=== PATIENT | female | born 2000 | race African-American/Black ===

== ENCOUNTER 2023-02-02 09:25 | Emergency (ER) | payer SELFPAY ==
[~2023-02-02] VITALS: Ht 162.5 cm; Wt 65.7 kg
--- NOTE | 2023-02-02 09:37 | ED Respiratory ---
General Chief Complaint: Respiratory Problems Stated Complaint: ASTHMA History of Present Illness Date Seen by Provider: Feb 02, 2023 Time Seen by Provider: 09:37 Initial Comments 23-year-old female with a history of asthma. She presents because she had a mild asthma exacerbation last night and had to use her inhaler. Patient reports that they just moved to town and moved to an apartment that had cats and dogs and she is allergic to both of them. She is not having shortness of breath at this time no wheezing. She has not had to use her inhaler this morning. She has a rescue inhaler albuterol and Spiriva. Allergies and Home Medications Allergies Coded Allergies: acetaminophen (Verified Allergy, Unknown, 02/02/23) dextromethorphan (Verified Allergy, Unknown, 02/02/23) doxylamine (Verified Allergy, Unknown, 02/02/23) pseudoephedrine (Verified Allergy, Unknown, 02/02/23) Patient Home Medication List Home Medication List Reviewed: Yes Review of Systems Review of Systems Constitutional: no symptoms reported EENTM: nose congestion Respiratory: see HPI Cardiovascular: no symptoms reported Gastrointestinal: no symptoms reported Genitourinary: no symptoms reported Musculoskeletal: no symptoms reported Skin: no symptoms reported Psychiatric/Neurological: No Symptoms Reported Physical Exam Capillary Refill : Height: '" Weight: lbs. oz. kg; BMI Method: General Appearance: WD/WN, no apparent distress Respiratory: lungs clear, normal breath sounds, no respiratory distress, no accessory muscle use Cardiovascular: normal peripheral pulses, regular rate, rhythm Neurologic/Psychiatric: alert, normal mood/affect, oriented x 3 Skin: normal color, warm/dry Progress/Results/Core Measures Suspected Sepsis SIRS Temperature: Pulse: Respiratory Rate: Blood Pressure / Mean: Results/Orders My Orders Orders - NIELS CRAIN DO Dexamethasone Injection (Dexamethasone (02/02/23 09:45) Vital Signs/I&O Capillary Refill : Progress Note : Progress Note Patient is not showing any signs of an acute asthma exacerbation at this time. However based on her history which sounds like she has had significant ICU stays and problems in the past I will start her a shot of Decadron. Patient is not having any wheezing, retraction or signs of increased respiratory issues. She is clear breath sounds on both sides. Mended she use her albuterol inhaler every 4 hours for the next 24 hours. She is stable and discharged Departure Impression Primary Impression: Asthma attack Qualified Codes: J45.901 - Unspecified asthma with (acute) exacerbation Disposition: 01 HOME, SELF-CARE Condition: Stable Departure-Patient Inst. Referrals: NO,LOCAL PHYSICIAN (PCP) Primary Care Physician Patient Instructions: Asthma Action Plan ED, Asthma, Adult (DC) Add. Discharge Instructions: Please use your albuterol rescue inhaler every 4 hours for the next 24 hours then as needed. If you require it more than every 2 hours please return to the ER. Recommend you start either Zyrtec, Linda or Claritin to help with your allergen exposure. Return to the ER with any other concerns. All discharge instructions reviewed with patient and/or family. Voiced unde rstanding. NIELS CRAIN DO Feb 02, 2023 09:37
[2023-02-02] MEDS ORDERED: dexAMETHasone INJ 10 MG/ML 1 ML VIAL IM ONE (09:45)
[2023-02-02 10:05] VITALS: BP 126/81
== END 2023-02-02 10:10 | disposition home or self-care (01) ==
LOC: ER 09:30
DX: J45.909 Unspecified asthma, uncomplicated (principal)
CPT/HCPCS: 99284